=== PATIENT | male | born 1990 | race Two or more races ===

== ENCOUNTER 2018-08-02 18:10 | Emergency (ER) | payer OTHER ==
[~2018-08-02] VITALS: Ht 170.2 cm; Wt 74.8 kg
[2018-08-02] MEDS ORDERED: NAPROXEN 250 MG TABLET PO ONE (19:30)
--- NOTE | 2018-08-02 19:50 | NUR ---
Pt came in c/o SOB, back pain, 10/27. He is A. O/4, on RA, no respiratory distress noted
[2018-08-02] MEDS ORDERED: NAPROXEN 250 MG TABLET ONE (20:11)
[2018-08-02 20:44] VITALS: BP 130/67
--- NOTE | 2018-08-02 20:44 | NUR ---
Patient discharged to home in stable condition. Written and verbal after care instructions given. Patient verbalizes understanding of instruction. Pt ambulatory with a steady gait
== END 2018-08-02 20:45 | disposition home or self-care (01) ==
LOC: ER 18:13
DX: S29.012A Strain of muscle and tendon of back wall of thorax, initial encounter (principal); R06.02 Shortness of breath; F41.9 Anxiety disorder, unspecified; X50.1XXA Overexertion from prolonged static or awkward postures, initial encounter; Y93.89 Activity, other specified; Y92.89 Other specified places as the place of occurrence of the external cause; Y99.0 Civilian activity done for income or pay
CPT/HCPCS: 71045-TC